=== PATIENT | female | born 1960 | race Caucasian/White ===

== ENCOUNTER 2023-10-24 10:40 | Outpatient (CLI) | payer MEDICARE, SELFPAY | END 2023-10-24 10:41 | disposition home or self-care (01) | LOC: ANHAUDIO 10:40 | PROVIDERS: PCP Internal Medicine; Visit Provider Internal Medicine | DX: H90.3 Sensorineural hearing loss, bilateral (principal) | CPT/HCPCS: 92557; 92567 ==

== ENCOUNTER 2023-11-04 09:14 | Outpatient (RCR) | payer MEDICARE, SELFPAY | END 2023-11-04 23:59 | disposition home or self-care (01) | LOC: ANHAUDIO 09:14 | PROVIDERS: PCP Internal Medicine | DX: Z46.1 Encounter for fitting and adjustment of hearing aid (principal) | CPT/HCPCS: V5261 ==

== ENCOUNTER 2024-06-06 16:51 | Emergency (ER) | payer MEDICARE, SELFPAY ==
[2024-06-06] VITALS (7 sets, daily range): BP systolic 87–131; BP diastolic 54–84; PULSE 70–83; RESP 13–20; TEMP 36.3; O2SAT 100
[2024-06-06] MEDS: SODIUM CHLORIDE 0.9% IV 1,000 ML 999 ML IV CONT ×2 (17:14→17:44)
--- NOTE | 2024-06-06 17:17 | ED.GENADULT ---
HPI - General Adult General Chief complaint: Nausea/Vomiting/Diarrhea Stated complaint: N/V/D Time Seen by Provider: 06/06/24 16:56 History of Present Illness HPI narrative: 64-year-old female present to the emergency department for evaluation for acute onset of nausea vomiting and diarrhea. Patient states symptoms started after lunch. Patient states that she suspect she did have a syncopal episode. Patient reports she was sitting on the toilet and reach for it for a bucket secondary to emesis and patient fell to the floor and had a large bowel movement. Patient denies any pain or complaint. Related Data Allergies Allergy/AdvReac Type Severity Reaction Status Date / Time hydrocodone AdvReac Mild Nausea Verified 06/06/24 17:07 Review of Systems Review of Systems: All systems reviewed & are unremarkable except as noted in HPI and below Exam Narrative: APPEARANCE: Well appearing, no pain, no distress, well-nourished. HEAD: normocephalic, atraumatic. EYES: PERRLA/EOMI, conjunctivae clear. NOSE: Normal no drainage EARS:TMS clear with good light reflex. THROAT: Pharynx clear, no exudate. NECK: Supple. No adenopathy, no masses. RESPIRATORY: Airway patent, respirations nonlabored. Clear to auscultation bilaterally, no rales, rhonchi, wheezing. CARDIOVASCULAR: Regular rate and rhythm without murmurs rubs or gallops. ABDOMINAL: Soft, nontender, nondistended, normal bowel sounds MUSCULOSKELETAL: Moves all extremities. Strength/ROM intact, No edema, No calf tenderness. NEURO: Alert. Cranial nerves II through XII intact. Good gait. Good coordination SKIN: Warm, dry. Normal Color PSYCHIATRIC: Normal affect/mood. Course Vital Signs Vital signs: Vital Signs Temperature 97.4 F L 06/06/24 16:51 Pulse Rate 74 06/06/24 16:51 Respiratory Rate 20 06/06/24 16:51 Blood Pressure 121/76 06/06/24 16:51 Pulse Oximetry 100 06/06/24 16:51 Oxygen Delivery Room Air 06/06/24 16:51 Temperature 97.4 F L 06/06/24 16:51 Pulse Rate 83 06/06/24 19:53 Respiratory Rate 15 06/06/24 19:53 Blood Pressure 131/69 06/06/24 19:53 Pulse Oximetry 100 06/06/24 19:53 Oxygen Delivery Room Air 06/06/24 16:51 Medical Decision Making [facility] Narrative Medical decision making narrative: 64-year-old female presents emergency department for evaluation episode of nausea vomiting and diarrhea. Patient is currently afebrile with no leukocytosis and hemoglobin of 13.3. Patient has elevated creatinine has no previous values on file. Lactic acid is elevated 2.1, patient was treated with a L of IV fluids. Patient was negative for influenza RSV and for COVID. Patient denies striking head. Patient is unsure if she had any loss of consciousness. After rehydration patient states she feels improved. Patient was tolerating p.o. challenge. Patient was advised to follow a clear liquid diet for the next 1-3 days. Patient was provided Zofran for nausea control. Differential Diagnosis Differential Diagnosis: Colitis, diverticulitis, dehydration, influenza Vital Signs Vital Signs: Vital Signs Temperature 97.4 F L 06/06/24 16:51 Pulse Rate 74 06/06/24 16:51 Respiratory Rate 20 06/06/24 16:51 Blood Pressure 121/76 06/06/24 16:51 Pulse Oximetry 100 06/06/24 16:51 Oxygen Delivery Room Air 06/06/24 16:51 Temperature 97.4 F L 06/06/24 16:51 Pulse Rate 83 06/06/24 19:53 Respiratory Rate 15 06/06/24 19:53 Blood Pressure 131/69 06/06/24 19:53 Pulse Oximetry 100 06/06/24 19:53 Oxygen Delivery Room Air 06/06/24 16:51 Lab Data 06/06/24 17:12 06/06/24 17:12 Labs: Lab Results 06/06/24 06/06/24 06/06/24 Range/Units 17:12 17:13 18:50 WBC 8.1 (4.5-10.0) K/mm3 RBC 4.10 L (4.2-5.4) M/mm3 Hgb 13.3 (12.0-15.0) g/dL Hct 40.9 (37.0-47.0) % MCV 99.8 (80-100) fl MCH 32.4 (26-34) pg MCHC 32.5 (32-36) g/dl RDW 14.0 (11.5-14.5) % Plt Count 145 L (150-375) k/mm3 MPV 11.1 H (7.4-10.4) fl Immature Gran % (Auto) 0.5 (0-0.5) % Neut % (Auto) 52.5 (45.5-73.1) % Lymph % (Auto) 32.8 (18.3-44.2) % [place] % (Auto) 13.1 H (2.6-8.5) % Eos % (Auto) 0.5 (0-4.4) % Baso % (Auto) 0.6 (0.2-1.2) % Lymph # (Auto) 2.65 (0.9-3.2) K/mm3 [place] # (Auto) 1.1 H (0.1-0.6) K/mm3 Eos # (Auto) 0.0 (0-0.3) K/mm3 Baso # (Auto) 0.1 (0.0-0.1) K/mm3 Abs Immat Gran (auto) 0.04 H (0.00-0.031) K/mm3 Absolute Neuts (auto) 4.3 (1.3-6.7) K/mm3 Absolute Nucleated RBC 0.000 (0.0-0.012) K/mm3 Nucleated RBC % 0.0 (0.0-0.2) % Sodium 140 (137-145) mmol/L Potassium 5.0 (3.4-5.0) mmol/L Chloride 103 (98-107) mmol/L Carbon Dioxide 28 (22-30) mmol/L Anion Gap 9 (4-12) mmol/L BUN 33 H (7-17) mg/dL Creatinine 1.92 H (0.7-1.0) mg/dL Estim Creat Clear Calc 22 ml/min Estimated GFR 26 L (59 - ) Glucose 139 H (65-110) mg/dL Lactic Acid 2.1 H (0.7-2.0) mmol/L Calcium 9.4 (8.4-10.2) mg/dL Total Bilirubin 0.9 (0.2-1.3) mg/dL AST 22 (14-36) U/L ALT 11 (6-35) U/L Alkaline Phosphatase 103 (38-126) U/L Total Protein 7.0 (6.3-8.2) g/dL Albumin 3.6 (3.5-5.1) g/dL Urine Color Yellow (Yellow) Urine Appearance Clear (Clear) Urine pH 6.5 (5.0-9.0) Ur Specific [place] 1.009 (1.001-1.035) Urine Protein Negative (Negative) mg/dL Urine Glucose (UA) 2+ H (Negative) mg/dL Urine Ketones Negative (Negative) mg/dL Ur Blood (Man) Negative (Negative) Urine Nitrate Negative (Negative) Urine Bilirubin Negative (Negative) Urine Urobilinogen 1.0 (<2.0) mg/dL Leukocyte Esterase Rfl Negative (Negative) SENAIT/UL Influenza A (RT-PCR) Negative (Negative) Influenza B (RT-PCR) Negative (Negative) RSV (RT-PCR) Negative (Negative) SARS-CoV-2 RNA (RT-PCR) Negative (Negative) Discharge Plan Discharge Clinical Impression: Nausea vomiting and diarrhea Patient Disposition: Home, Self-Care Condition: Stable Instructions: Antibiotic Form, Clear Liquid Diet (ED), Acute Nausea and Vomiting (ED) Additional Instructions: Clear liquid diet for the next 1-3 days. Zofran as needed for nausea control. Have close follow-up with your primary care physician. If you have any worsening symptoms then please call or return to the emergency department. Patient Language: Panamanian Prescriptions: New ondansetron 4 mg tablet,disintegrating 4 mg PO Q8H PRN (Reason: nausea and vomiting) Qty: 14 0RF Follow-up/Referrals: Sergei,Justice Busby MD [Primary Care Provider] -
[2024-06-06 17:19] LABS: Basophils Absolute Auto 0.1 K/mm3 (0.0-0.1); Basophils Percent Auto 0.6 % (0.2-1.2); Eosinophils Percent Auto 0.5 % (0-4.4); Hematocrit 40.9 % (37.0-47.0); Hemoglobin 13.3 g/dL (12.0-15.0); Immature Granulocyte Absolute 0.04 K/mm3 (0.00-0.031); Immature Granulocyte Percent A 0.5 % (0-0.5); Lymphocytes Absolute Auto 2.65 K/mm3 (0.9-3.2); Lymphocytes Percent Auto 32.8 % (18.3-44.2); Mean Corpuscular HGB Conc 32.5 g/dl (32-36); Mean Corpuscular Hemoglobin 32.4 pg (26-34); Mean Corpuscular Volume 99.8 fl (80-100); Mean Platelet Volume 11.1 fl (7.4-10.4); Monocytes Absolute Auto 1.1 K/mm3 (0.1-0.6); Monocytes Percent Auto 13.1 % (2.6-8.5); Neutrophils Absolute Auto 4.3 K/mm3 (1.3-6.7); Neutrophils Percent Auto 52.5 % (45.5-73.1); Platelet Count Result 145 k/mm3 (150-375); White Blood Count 8.1 K/mm3 (4.5-10.0)
[2024-06-06 17:32] LABS: Lactic Acid Reflex 2.1 mmol/L (0.7-2.0)
[2024-06-06 17:33] LABS: Alanine Aminotransferase 11 U/L (6-35); Albumin Level 3.6 g/dL (3.5-5.1); Alkaline Phosphatase 103 U/L (38-126); Anion Gap 9 mmol/L (4-12); Aspartate Amino Transferase 22 U/L (14-36); Bilirubin,Total 0.9 mg/dL (0.2-1.3); Blood Urea Nitrogen 33 mg/dL (7-17); Calcium 9.4 mg/dL (8.4-10.2); Carbon Dioxide 28 mmol/L (22-30); Chloride 103 mmol/L (98-107); Estimated CRCL calculation 22 ml/min; Estimated Glomerular Filt Rate 26; Glucose 139 mg/dL (65-110); Sodium 140 mmol/L (137-145)
--- OUTSIDE RECORDS SUMMARY | 2024-06-06 17:33 | XMS_ITS | Clinical Summary ---
Author Organization [facility] Address [address], [facility] [address] [place] [address] Phone Care Team Providers Care Retail Seasonal Specialist Name Role Phone Amanuel Montelongo MD Primary Care Provider [phone] Medications polyethylene glycol (MIRALAX) Powder Mix the entire bottle with 64 oz of a clear liquid. Use as directed by the office for colonoscopy prep. 255 g 7 Active Social History Tobacco Use Types Packs/Day Years Used Date Smoking Tobacco: Never Assessed Comments Unknown Sex and Gender Information Value Date Recorded Sex Assigned at Not on file Legal Sex Female 10:50 PM CDT Gender Identity Not on file Sexual Orientation Not on file Plan of Treatment Health Maintenance Due Date Last Done Comments Hepatitis C Virus (HCV) Screening 1960 TdaP Immunization 1960 Pap Smear 1983 Cervical Cancer Screening (CCS) 01/03/1992 HPV/Cotest 01/03/1992 Cologuard 01/03/2012 Immunochemical Fecal Occult Blood 01/03/2012 Mammogram 01/03/2012 Pneumococcal Immunization (5 0+ years) (1 of 1 - PCV) 01/03/2012 Zoster Immunization (1 of 2) 01/03/2012 Influenza Immunization (#1) 2023 SARS-COV-2 Immunization (1 - 2023- season) 2023 Colonoscopy 12/06/2024 12/07/2019, 08/13/2016 Colorectal Cancer Screening 12/06/2024 Respiratory Syncytial Virus (RSV) Immunization (Adult) (1 - 1-dose 75+ series) 2037 12/07/2019, 08/13/2016 Hepatitis B Immunization Aged Out No longer eligible based on patient's age to complete this topic Meningococcal Immunization (ACWY) Aged Out No longer eligible b ased on patient's age to complete this topic Pneumococcal Immunization Combined Aged Out No longer eligible b ased on patient's age to complete this topic Rotavirus Immunization Aged Out No lo nger eligible based on patient's age to complete this topic Procedures Procedure Name Priority Date/Time Associated Diagnosis Comments COLONOSCOPY Routine 12/07/2019 from Last 3 Months or Most Recently Relevant to Health Maintenance Results * COLONOSCOPY (12/07/2019) Abel Barajas DO PROCEDURE/MINOR SURGICAL ORDERA BLES Final Result from Last 3 Months or Most Recently Relevant to Health Maintenance [place] [address] [place] [address] MEDICARE Care Teams Retail Seasonal Specialist Relationship Specialty Start Date End Date Amanuel Montelongo MD [id number] [place] [address] PCP - General Internal Medicine 08/17/16
--- OUTSIDE RECORDS SUMMARY | 2024-06-06 17:33 | XMS_ITS | CONTINUITY OF CARE DOCUMENT ---
Author Name uma hiramjenn Address Unknown Organization [facility] Address [address] [place] [address] [address] [place] [address] Phone [phone] Care Team Providers Care Firearms Model Maker Name Role Phone Tom Moya MD Unavailable [phone] [place] Unavailable [place] Unavailable [phone] PROBLEMS Condition Status Date Provider Notes HTN essential active Whitney Gunn MD Shortness of breath active Whitney Gunn MD Gastritis active Whitney Gunn MD Colitis active Whitney Gunn MD Tobacco abuse active Whitney Gunn MD FAMILY HISTORY OF HEART DISEASE active Erasmo Gunn MD Diastolic dysfunction active Whitney Mckeon Swelling of bilateral legs active Franco saravia CKD stage III active Franco Leiva Carotid artery stenosis active Franco peng Hyperlipidemia active Franco Leiva Venous insufficiency active Franco Leiva ENCOUNTERS Date Type Provider Location Encounter Diag nosis - In-person encounter Office Visit Tom Moya MD [facility] - In-person encounter Office Visit Tom Moya MD [facility] HyperlipidemiaVenous insufficiency - In-person encounter Office Visit Tom Moya MD [facility] Swelling of bilateral legsCKD stage IIICarotid artery stenosis - In-person encounter Office Visit Whitney Gunn MD [facility] - In-person encounter Office Visit Whitney Gunn MD [facility] HTN essentialShortness of breathGastritisColitisTobacco abuseFAMILY HISTORY OF HEART DISEASEDiastolic dysfunction VITAL SIGNS Date Observation Value Provider Body Mass Index (Ratio) 23.77 kg/m2 Marta trinidad Abbie blood pressure, diastolic 82 mm[Hg] Libby alvin Chau blood pressure, systolic 128 mm[Hg] Madina jackson Isac pulse rate 65 /min Marii Isac oxygen saturation, oximetry 99 % Marii Isac weight E&M 130 [lb_av] Mariirenetta Chau blood pressure, cuff size large An alvin Chau height E&M 62 [in_i] Mariirenetta Chau Body Mass Index (Ratio) 24.87 kg/m2 [facility] size regular Simba rret blood pressure, diastolic 86 mm[Hg] Ja rret blood pressure, systolic 132 mm[Hg] Shay ret pulse rate 81 /min Kashif y oxygen saturation, oximetry 94 % Kashif respiratory rate E&M 16 /min Kashif weight E&M 136 [lb_av] Kashif y height E&M 62 [in_i] Kashif y Body Mass Index (Ratio) 24.51 kg/m2 [facility] vivi Abbie blood pressure, diastolic 80 mm[Hg] Li nkLogic blood pressure, systolic 140 mm[Hg] Mone kLogic blood pressure, cuff size regular Ja rret blood pressure, diastolic 80 mm[Hg] Ja rret blood pressure, systolic 140 mm[Hg] Shay ret pulse rate 75 /min Kashif y respiratory rate E&M 12 /min Kashif oxygen saturation, oximetry 94 % Kashif weight E&M 134 [lb_av] Kashif y height E&M 62 [in_i] Kashif y Body Mass Index (Ratio) 33.83 kg/m2 Erasmo Gunn MD blood pressure, cuff size large Ke rri [facility] blood pressure, diastolic 94 mm[Hg] Ke rri [facility] blood pressure, systolic 132 mm[Hg] Rocky celeste Medinala [facility] oxygen saturation, oximetry 97 % Myrtle [facility] respiratory rate E&M 16 /min Myrtle G yessicaenela [facility] pulse rate 84 /min Myrtle Rachellnetonie [facility] weight E&M 185 [lb_av] Myrtle Rachellnenfe [facility] height E&M 62 [in_i] Myrtle Rachellnenfe [facility] Body Mass Index (Ratio) 34.02 kg/m2 Erasmo Gunn MD blood pressure, resting Yes Chasefer andrade [place] blood pressure, cuff size regular Kr isty [place] blood pressure, diastolic 80 mm[Hg] Kr isty Edgar blood pressure, systolic 138 mm[Hg] Kri julito [place] oxygen saturation, oximetry 98 % Latonia Edgar pulse rate 83 /min Latonia [place] respiratory rate E&M 19 /min Latonia Edgar height E&M 62 [in_i] Latonia [place] weight E&M 186 [lb_av] Latonia [place] ALLERGIES Allergy Name Onset Date Reaction Criticality Status NSAIDS Low Criticality active CODEINE Low Criticality active HISTORY OF MEDICATION USE Medication Status Instructions Dates Provider Indications Com ments furosemide 20 mg tablet active TAKE 1 TABLET BY MOUTH EVERY DAY 06/18 Tom Moya MD Jardiance 10 mg tablet active Take 1 tablet by mouth once a day 06/18 Tom Moya MD Zithromax Z-Ritchie 250 mg tablet completed Take 1 tablet by mouth as directed Take 2 tablets on day one and then take one tablet daily x 4 days 05/22 - 07/30 Gayeserena Cisnerosmiglia [employer] atorvastatin 40 mg tablet active 1 tablet by mouth once a day 04/24 Gaye Ventimiglia [employer] Plavix 75 mg tablet active 1 tablet by mouth once a day 04/24 Gaye Ventimiglia [employer] Wellbutrin SR 100 mg tablet sustained-release 12 hr completed one tab by mouth daily, if not effective after 1 week may increase to twice daily 04/24 - 07/30 Gaye Ventimiglia [employer] nicotine 21 mg/24 hr patch 24 hour active as directed 04/24 Gayeserena Cisnerosmiglia [employer] Unisom (doxylamine) 25 mg tablet completed tablet by mouth as needed - 07/30 Gayeserena Cisnerosmiglia [employer] melatonin 5 mg capsule completed Take 1 tablet by mouth once a day - 07/30 Gaye Ventimiglia [employer] nabumetone 500 mg tablet completed Take 1 tablet by mouth twice a day 12/09 - 07/30 Gaye Ventimiglia [employer] #60, 30 days supply, Prescribed by VON IBRAHIM, Filled 12/10/2019 lisinopril 20 mg tablet active Take 1 tablet by mouth once a day 12/14 Gayeserena Cisnerosmiglia [employer] #60, 30 days supply, Prescribed by MAGGIE GRANT, Filled 12/15/2019 hydrochlorothiazide 12.5 mg capsule completed Take 1 tablet by mouth twice a day 12/14 - 07/30 Gaye Ventimiglia [employer] #60, 30 days supply, Prescribed by MAGGIE GRANT, Filled 12/15/2019 divalproex 250 mg tablet extended release 24 hr active Take 5 tablet by mouth every night 06/18 Gaye Cisnerosmiglia [employer] #150, 30 days supply, Prescribed by VON IBRAHIM, Filled 12/31/2019 nystatin 100,000 unit/gram cream completed Apply to skin twice a day - 07/30 Gaye Guilloryglia [employer] #30, 15 days supply, Prescribed by MAGGIE GRANT, Filled 01/14/2020 amlodipine 5 mg tablet active Take 1 tablet by mouth once a day Gaye Guilloryglia [employer] #30, 30 days supply, Prescribed by MAGGIE GRANT, Filled 01/14/2020 SOCIAL HISTORY Date Observation Value Provider personal history of marijuana use no Gayeserena Cisnerosmiglia [facility] drug use no Gayeserena Cisnerosmig marisela [facility] alcohol use no Gayeserena Cisnerosmig marisela [facility] smoking/tobacco cess ation, patient education and counseling yes Marii Isac number of years as a smoker 35 a Marii Isac smoking history, tot al pack/day 1 pks qd Marii Isac cigarette use yes Marii Isac smoking status Current every day smoker A artem Isac smoking/tobacco cess ation, patient education and counseling yes Franco Abbie number of years as a smoker 35 a Franco Abbie smoking history, tot al pack/day 1 pks qd Franco Abbie cigarette use yes Franco Gopi i smoking status Current every day smoker G raham Abbie smoking/tobacco cess ation, patient education and counseling yes Myrtle Gautam number of years as a smoker 35 a Myrtle Dianeer smoking history, tot al pack/day 1 pks qd Myrtle Dianeer cigarette use yes Myrtle Ramirez [facility] smoking status Current every day smoker K ashok Dianekade smoking/tobacco cess ation, patient education and counseling yes Whitney Gunn MD social history E&M S moking History: P cecelia currently smokes every day. Whitney Gunn MD social history reviewed E&M revi ewed - no changes required Whitney Gunn MD number of years as a smoker 35 a Latonia Hernández smoking history, tot al pack/day 1 pks qd Latonia Hernández cigarette use yes Latonia Hernández smoking status Current every day smoker K jose [place] INSURANCE PROVIDERS Payer name Policy type / Coverage type [place] [employer] [place] Medicare [id number] ADVANCE DIRECTIVES Name Date DISCUSSED - NO DECISION MADE TREATMENT PLAN Date Name Performer Cardiology Gayeserena hampton [facility] Cardiology:cessation encouraged Gayeserena Moss [facility] Cardiology:Blood pre ssure well controlled C ontinue pressent medication regimen T he following medications were removed from the medication list: Hydrochlorothiazide 12.5 Mg Capsule (Hydrochlorothiazide) ..... Take 1 tablet by mouth twice a day Her updated medication list for this problem includes: Amlodipine 5 Mg Tablet (Amlodipine) ..... Take 1 tablet by mouth once a day Lisinopril 20 Mg Tablet (Lisinopril) ..... Take 1 tablet by mouth once a day Furosemide 20 Mg Tablet (Furosemide) ..... Take 1 tablet by mouth every day Gayeserena Moss [facility] Cardiology:edema imp roved with lasix and Jardiance s he has been unable to tolerate compression stockings. Gayeserena Moss [facility] Cardiology:started o n Jardiance at last visit and feeling well with medication. She has also noted decreased swelling in the bilateral LE W e will continue present medication regimen Gayeserena Moss [facility] Cardiology: ntProBNP 2010, LDL 104. We will start Jardiance 10mg daily and Lasix 20mg daily. Franco Leiva Cardiology: chronic CKD followed by Dr. Gupta. Franco Leiva Cardiology:enous dup austyn showed insufficiency of right superficial femoral vein. If no improvement, will consider venography/IVUS. Franco Leiva Cardiology:Carotid duplex showed 50-69% of MARYAN. Franco Leiva Cardiology:Increase lipitor to 80mg daily. H er updated medication list for this problem includes: Atorvastatin Calcium 40 Mg Oral Tablet (Atorvastatin calcium) ..... One tab daily Franco Leiva Cardiology:Echo show ed normal EF.Renal artery duplex normal. Carotid duplex showed 50-69% of MARYAN. Stress test is being rescheduled. ntProBNP 2009, LDL 104. We will start Jardiance 10mg daily and Lasix 20mg daily. Increase lipitor to 80mg daily. 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 If no improvement, will consider venography/IVUS. Pending stress test result will obtain cardiac cath Franco Leiva Cardiology:The Patie nt was reencouraged to stop smoking. Franco Leiva Cardiology: B P today: 140/80 P rior BP: 132/94 (02/23/2020) Her updated medication list for this problem includes: Lisinopril 20 Mg Oral Tablet (Lisinopril) ..... Take one tablet by mouth twice daily Hydrochlorothiazide 12.5 Mg Oral Capsule (Hydrochlorothiazide) ..... Take one tablet by mouth twice daily Amlodipine Besylate 5 Mg Oral Tablet (Amlodipine besylate) ..... Take one tablet by mouth once daily Franco Leiva Cardiology Franco Leiva Cardiology: chronic CKD followed by Dr. Gupta. Franco Leiva Cardiology: In addit ion she has hx of moderate right carotid stenosis w ill check carotid doppler Franco Leiva Cardiology:Pt compla ins of leg edema, discomfort and an inability to wear shoes. She was not able to tolerate support stockings. Tom Moya MD Cardiology Whitney Gunn MD Cardiology Whitney Gunn MD Cardiology Whitney Gunn MD Cardiology Whitney Gunn MD Cardiology Whitney Gunn MD Date Name RPM (remote patient monitoring) Microalb/Creatinine Urine, Random Stress Regadenoson CRP, high sensitivit y LIPID PANEL Lipoprotein (a) PROBNP, N TERMINAL Microalb/Creatinine Urine, Random HEMOGLOBIN A1c BASIC METABOLIC PANE L W/EGFR Renal Artery Duplex Carotid Duplex Bilat eral Venous Doppler Bilat eral LE - Reflux Complete Echo Stress Exercise Card iolite LIPID PANEL CBC (H/H, RBC, INDIC ES, WBC, PLT) BASIC METABOLIC PANE L W/EGFR IRON AND TOTAL IRON BINDING CAPACITY FERRITIN CBC (INCLUDES DIFF/P LT) TSH, free T4, total T3 LIPID PANEL COMPREHENSIVE METABO LIC PANEL, W/EGFR DLCO - 92643 FRC - 09449 FVC - 33622 Stress Regadenoson HISTORY OF PROCEDURES Procedure Date Procedure Name Provider Procedure Notes S tatus EKG Tom Moya MD completed FVC / MVV with bronchodilator - 56746 Whitney Gunn MD completed BLOOD COUNT HEMOGLOBIN Whitney Gunn MD completed FRC - 14794 Whitney Gunn MD complete d SpO2 w/o 6min walk/titration Whitney Gunn MD completed DLCO - 85360 Whitney Gunn MD complet ed EKG Whitney Gunn MD completed
--- OUTSIDE RECORDS SUMMARY | 2024-06-06 17:33 | XMS_ITS | Data Portability ---
Author Organization [facility] [employer] Main Office Address [address] [place] [address] Care Team Providers Care Tire Worker Name Role Phone DARNELL HUMPHREY Primary Care Provider [phone] LEXUS DONOVAN Vascular Surgeon [phone] Assessment No assessment recorded. Plan of Treatment Reminders Order Date Submit Date Provider Last Modified By Organization Details Last Modified Time Details Appointments Medicare Wellness 15 2024 11:30A M Darnell Humphrey MD Not available Not available Not available Lab TSH, serum or plasma 2024 025 [facility] (Lab), [address] [place], [address], 04/22/2024 20:40:41 iron + total iron-bind ing capacity (TIBC), serum 2023 [facility] [address] (Lab), [address] [place], [address], 10/30/2023 16:11:13 vitamin B12, serum 2023 [facility] [facility] [address] [place] [address] (Lab), [address] [place], [address], 10/30/2023 16:10:45 ferritin, serum or plasma [address] ([facility]), [address] [place], [address], 10/30/2023 16:10:08 folate, serum [address] ([facility]), [address] [place], [address], 10/30/2023 16:10:58 CBC [address] (Lab), [address] [place], [address], 10/30/2023 16:10:20 lipid panel, serum [address] (Lab), [address] [place], [address], 10/30/2023 16:09:32 urinalysi s, complete [address] (Lab), [address] [place], [address], 10/30/2023 16:09:19 CMP, serum or plasma [address] (Lab), [address] [place], [address], 10/30/2023 16:09:52 Referral gynecolog ist referral - Please call patient to schedule. 2024 025 ADRIANE Ellison MD, [address] [facility] [address], [facility] [address], [place], [address], 04/22/2024 18:30:[address] referral [address] (Audiology), [address] [facility] [address], [place], [address], 10/23/2023 07:56:15 dermatolo gist referral 2023 024 [place] [address] [facility], [facility] [place], [address], 10/23/2023 07:56:16 Procedures colonosco py screening (PROC) 2024 025 [facility] Maurice Mckay MD, [address] [address], [facility] [address], [place], [address], 04/29/2024 08:32:13 Surgeries None recorded. Imaging MAMMO, screening , digital, bilateral [address], [facility] [address], [address], 04/22/2024 17:55:07 LDCT, chest, for lung cancer screening - Please call patient to schedule. 2024 025 [facility], [address], [address], 04/22/2024 18:05:28 MAMMO, screening , digital, bilateral [address], [facility] [address], [address], 01/07/2024 17:32:38 LDCT, chest, for lung cancer screening [address], [facility] [address], [address], 10/02/2023 08:37:55 bone density [address], [facility] [address], [address], 10/09/2023 08:16:01 Medication Orders None recorded. Patient TargetsNo targets recorded. Patient Instructions Encounter Date Encounter Id Patient Instructions Last Modified By Organization Details Last Modified Time 10/23/2023 [id number] [facility] health assessment questionnaire* Not available 10/23/2023 16:39:13 advance directiv es: care instructions Not available 10/23/2023 16:39:13 [place] Advance Directives Not available 10/23/2023 16:39:13 advance care planning: care instructions seth Not available 10/23/2023 16:39:13 Personalized Hea lth Plan and Screening Recommendations Advance Directives - Do you have one? No You have indicated that you are capable of preparing your advance care directive Advance Directives - Do we have your advance directive on file in your health record? No, please bring in a copy at your earliest convenience Primary Prevention/Interven tion (prevents or decreases the chance of common diseases from occurring) Smoking Risk: Smoker Refer to attached smoking cessation handouts Refer to attached handouts and prescription will be sent to pharmacy Continue to consider stopping smoking and call if we can assist you Alcohol Misuse Screening: Negative Weight: Appropriate Physical activity: Need more exercise/physical activity minimum of 10-20 minutes of activity that causes mild breathlessness/day Nutrition: Good Average Refer to attached handout Heart-Healthy Diet: After Your Visit Fall Risk (screened today): Low Intermediate Refer to attached handout Preventing Falls: After your Visit Vaccines Pneumococcal: Ordered Recommended today Influenza: Your next one in the fall of this year Chronic Disease Risks Stroke: Low Risk Intermediate Risk I have no recommendations Act gina diagnosis, Continue current treatment plan Heart Attack: Low risk Intermediate Risk I have no recommendations Act gina diagnosis, Continue current treatment plan Clogging of the Arteries: Low risk Intermediate Risk I have no recommendations Act gina diagnosis, Continue current treatment plan Diabetes: Low Risk I have no recommendations Secondary Prevention/Interven tion (detects treatable diseases before they may cause symptoms, disability, or ) Breast Cancer Screening with mammogram: Your next mammogram: Ordered Recommended today Recommended today, but you have declined Cervical/Uterine/Ov dagoberto Cancer Screening: Your next PAP/pelvic in: Referral to concrete laborer Recomm ended today Recommended today, but you have declined Osteoporosis Screening: No screening necessary Date Screening Last Performed:states done 2022_ Colon Cancer Screening: No screening necessary Date Screening Last Performed: 2020 Eye Disease Screening: Ordered Recommended today Dementia Risk: Low Intermediate Depression Screening: Negative [email or web address] Not available 10/23/2023 16:45:58 Reason for Referral Gypsum Roofer Referral for Hea ring loss Referring Physician: Darnell Humphrey, Internal Medicine, Encounter Date: 09/25/2023 Driver Courier Referral for S kin lesion Referring Physician: Darnell Humphrey, Internal Medicine, Encounter Date: 09/25/2023 Information Security Associate Referral for Gy necologic examination Please call patient to schedule. Referring Physician: Darnell Humphrey, Internal Medicine, Encounter Date: 04/22/2024 Results Created Date Observation Date Name Description Value Unit Range Abnormal Flag Note LastModifiedBy Organization Detail LastModifiedTime 11/05/19 24 11/05/2023 CBC W/O DIFFE RENTI AL white blood cells 5.5 x10'3 /uL 4.2-10 .8 Not Available [facility] (Lab) [address] [place], [address], 11/05/2023 20:33:01 11/05/19 24 11/05/2023 CBC W/O DIFFE RENTI AL red blood cells 4.08 x10'6 /uL 3.80-5 .20 Not Available [facility] (Lab) [address] [place], [address], 11/05/2023 20:33:01 11/05/19 24 11/05/2023 CBC W/O DIFFE RENTI AL hemoglobin 13.4 g/dL 12.0-1 5.6 Not Available [facility] (Lab) [address] [place], [address], 11/05/2023 20:33:01 11/05/19 24 11/05/2023 CBC W/O DIFFE RENTI AL hematocrit 42.9 % 35.7-4 5.7 Not Available [facility] (Lab) [address] [place], [address], 11/05/2023 20:33:01 11/05/19 24 11/05/2023 CBC W/O DIFFE RENTI AL mean red cell volume 105.1 fL 82.0-9 9.0 high Not Available [facility] (Lab) [address] [place], [address], 11/05/2023 20:33:01 11/05/19 24 11/05/2023 CBC W/O DIFFE RENTI AL mean red cell hemoglobin 32.8 pg 27.0-3 3.0 Not Available [facility] (Lab) [address] [place], [address], 11/05/2023 20:33:01 11/05/19 24 11/05/2023 CBC W/O DIFFE RENTI AL mean RBC HGB concentratio n 31.2 g/dL 31.0-3 6.0 Not Available [facility] (Lab) [address] [place], [address], 11/05/2023 20:33:01 11/05/19 24 11/05/2023 CBC W/O DIFFE RENTI AL red cell distribution width 14.0 % 11.8-1 5.5 Not Available [facility] (Lab) [address] [place], [address], 11/05/2023 20:33:01 11/05/19 24 11/05/2023 CBC W/O DIFFE RENTI AL platelets 98 x10'3 /uL 150-40 0 low Not Available [facility] (Lab) [address] [place], [address], 11/05/2023 20:33:01 11/05/19 24 11/05/2023 CBC W/O DIFFE RENTI AL mean platelet volume 11.8 fL 9.0-12 .4 Not Available [facility] (Lab) [address] [place], [address], 11/05/2023 20:33:01 11/05/19 24 11/05/2023 COMPR EHENS GINA METAB OLIC PANEL sodium 139 mmol/ L 137-14 5 Not Available [facility] (Lab) [address] [place], [address], 11/05/2023 20:49:41 11/05/19 24 11/05/2023 COMPR EHENS GINA METAB OLIC PANEL potassium 3.7 mmol/ L 3.5-5. 1 Not Available [facility] (Lab) [address] [place], [address], 11/05/2023 20:49:41 11/05/19 24 11/05/2023 COMPR EHENS GINA METAB OLIC PANEL chloride 109 mmol/ L 98-107 high Not Available [facility] (Lab) [address] [place], [address], 11/05/2023 20:49:41 11/05/19 24 11/05/2023 COMPR EHENS GINA METAB OLIC PANEL carbon dioxide 23 mmol/ L 22-30 Not Available [facility] (Lab) [address] [place], [address], 11/05/2023 20:49:41 11/05/19 24 11/05/2023 COMPR EHENS GINA METAB OLIC PANEL anion gap 10.7 mmol/ L 14-22 low Not Available [facility] (Lab) [address] [place], [address], 11/05/2023 20:49:41 11/05/19 24 11/05/2023 COMPR EHENS GINA METAB OLIC PANEL glucose 62 mg/dL 70-99 low Not Available [facility] (Lab) [address] [place], [address], 11/05/2023 20:49:41 11/05/19 24 11/05/2023 COMPR EHENS GINA METAB OLIC PANEL BUN 24 mg/dL 8-19 high Not Available [facility] (Lab) [address] [place], [address], 11/05/2023 20:49:41 11/05/19 24 11/05/2023 COMPR EHENS GINA METAB OLIC PANEL creatinine 1.36 mg/dL 0.66-1 .25 high Not Available [facility] (Lab) [address] [place], [address], 11/05/2023 20:49:41 11/05/19 24 11/05/2023 COMPR EHENS GINA METAB OLIC PANEL GFR 40 Refer ence Range : [place] ge GFR Healt hy Adult : >60 mL/mi n/1.7 3 m2 Chron ic Kidne y Disea se: 15-60 mL/mi n/1.7 3 m2 Kidne y Failu re: <15/m L/min /1.73 m2 www.n iddk. nih.g ov The MDRD study equat ion has not been valid ated in child fabiola <18 years of age; pregn ant women ; the elder ly >85 years of age; or in some racia l or ethni c subgr oups, such as Hispa nics. Outsi de the valid ated carmine eters , estim ated GFR is less accur ate, requi ring clini minor judgm ent on a case- by-ca se basis . Clini minor inter preta tion for other races and ages must be made by the clini britta. The MDRD study equat ion has not been valid ated for the evalu ation of serum creat inine relat ed to nutri hilary l statu s or medic ation usage . For perso ns <18 years of age, a pedia tric GFR calcu lator is avail able on the [facility] websi te: https ://sonali vera.o rg/pr ofess ional s/kdo qi/gf r_cal culat or Not Available [facility] (Lab) [address] [place], [address], 11/05/2023 20:49:41 11/05/19 24 11/05/2023 COMPR EHENS GINA METAB OLIC PANEL alkaline phosphatase 87 U/L 38-126 Not Available [facility] (Lab) [address] [place], [address], 11/05/2023 20:49:41 11/05/19 24 11/05/2023 COMPR EHENS GINA METAB OLIC PANEL alanine aminotransfe rase 11 U/L 0-35 Not Available [facility] (Lab) [address] [place], [address], 11/05/2023 20:49:41 11/05/19 24 11/05/2023 COMPR EHENS GINA METAB OLIC PANEL aspartate aminotransfe rase 27 U/L 15-37 Not Available [facility] (Lab) [address] [place], [address], 11/05/2023 20:49:41 11/05/19 24 11/05/2023 COMPR EHENS GINA METAB OLIC PANEL bilirubin, total 0.50 mg/dL 0.20-1 .30 Not Available [facility] (Lab) [address] [place], [address], 11/05/2023 20:49:41 11/05/19 24 11/05/2023 COMPR EHENS GINA METAB OLIC PANEL calcium 9.6 mg/dL 8.4-10 .2 Not Available [facility] (Lab) [address] [place], [address], 11/05/2023 20:49:41 11/05/19 24 11/05/2023 COMPR EHENS GINA METAB OLIC PANEL total protein 6.5 g/dL 6.3-8. 2 Not Available [facility] (Lab) [address] [place], [address], 11/05/2023 20:49:41 11/05/19 24 11/05/2023 COMPR EHENS GINA METAB OLIC PANEL albumin 3.9 g/dL 3.4-5. 0 Not Available [facility] (Lab) [address] [place], [address], 11/05/2023 20:49:41 11/05/19 24 11/05/2023 COMPR EHENS GINA METAB OLIC PANEL globulin 2.6 g/dL 2.6-4. 2 Not Available [facility] (Lab) [address] [place], [address], 11/05/2023 20:49:41 11/05/19 24 11/05/2023 COMPR EHENS GINA METAB OLIC PANEL A/G ratio 1.5 ratio 1.0-2. 0 Not Available [facility] (Lab) [address] [place], [address], 11/05/2023 20:49:41 11/05/19 24 11/05/2023 LIPID PANEL cholesterol 198 mg/dL 140-19 9 [facility] JOSEFA NSUS RECOM MENDA TION FOR JUDSON STERO L: ADULT CHILD LOW RISK: <200 <170 BORDE RLINE : <200- 239 ----- HIGH RISK: >240 >200 Not Available [facility] (Lab) [address] [place], [address], 11/05/2023 20:49:45 11/05/19 24 11/05/2023 LIPID PANEL triglyceride s 243 mg/dL 0-150 high NIH JOSEFA NSUS REPOR T RECOM MENDA TION FOR TRIGL YCERI DAVID: ADULT CHILD LOW RISK: <150 ----- BODER LINE: 150-1 99 ----- HIGH RISK: >200 ----- Not Available [facility] (Lab) [address] [place], [address], 11/05/2023 20:49:45 11/05/19 24 11/05/2023 LIPID PANEL HDL cholesterol 44 mg/dL 40- Not Available [facility] (Lab) [address] [place], [address], 11/05/2023 20:49:45 11/05/19 24 11/05/2023 LIPID PANEL LDL cholesterol, calculated 105 mg/dL 0-130 NIH JOSEFA NSUS REPOR T RECOM MENDA TIONS FOR LDL: ADULT CHILD LOW RISK <130 <110 (OPTI MAL LDL) <100 ----- BORDE RLINE : 130-1 59 ----- HIGH RISK: >160 >130 A TRIGL YCERI DE RESUL T >400 INVAL IDATE S THE CALCU LATIO N FOR LDL FRACT IONAT ION - THE LDL RESUL T WILL NOT BE REPOR BRAIN. Not Available [facility] (Lab) [address] [place], [address], 11/05/2023 20:49:45 11/05/19 24 11/05/2023 IRON/ TIBC PANEL total iron binding capacity 289 mcg/d L 265-47 5 Not Available [facility] (Lab) [address] [place], [address], 11/05/2023 21:02:51 11/05/19 24 11/05/2023 IRON/ TIBC PANEL % transferrin saturation 22 % 20-55 Not Available [facility] (Lab) [address] [place], [address], 11/05/2023 21:02:51 11/05/19 24 11/05/2023 IRON/ TIBC PANEL unsaturated iron bind capacity 224 mcg/d L 126-38 2 Not Available [facility] (Lab) [address] [place], [address], 11/05/2023 21:02:51 11/05/19 24 11/05/2023 IRON/ TIBC PANEL iron 65 mcg/d L 42-175 Not Available [facility] (Lab) [address] [place], [address], 11/05/2023 21:02:51 11/05/19 24 11/05/2023 TEST NOT PERFO RMED test not performed SEE COMMEN T UNABL E TO PERFO RM URINA LYSIS COMPL ETE DUE TO NO URINE REC'D IN LAB FOR TESTI NG Not Available [facility] (Lab) [address] [place], [address], 11/05/2023 21:13:24 11/05/19 24 11/05/2023 LUIS TIN ferritin 76 NG/mL 11.1-2 64 Not Available [facility] (Lab) [address] [place], [address], 11/05/2023 21:30:50 11/05/19 24 11/05/2023 VITAM IN B12 (MARGA KRISTA ) vb12 537 pg/mL 239-93 1 Not Available [facility] (Lab) [address] [place], [address], 11/05/2023 21:47:16 11/05/19 24 11/05/2023 FOLAT E, SERUM /PLAS MA folate 7.03 NG/mL 2.76-2 0.0 Not Available [facility] (Lab) [address] [place], [address], 11/05/2023 21:47:22 04/22/19 25 04/22/2024 TSH thyroid-stim ulating hormone 2.900 uIU/m L 0.465- 4.680 Not Available [facility] (Lab) [address] [place], [address], 04/22/2024 20:40:41 08/07/19 23 08/06/2022 US, carot id arter y No observ ation record ed. [email or web address] [facility] [address], [place], [address], 08/08/2022 18:30:16 Result Notes None recorded. Problems Name Problem SNOMED Code Status Onset Date Resolution Date Notes Provider Name and Address Organization Details Recorded Time Edema of lower extremity 472417550 Active 2021 Not Available [employer] 3 09:16:13 Pain in lower limb 58314833 Active 2021 Not Available [employer] 3 09:16:13 Sinus tarsi syndrome of left ankle 0601873507489 9102 Active 2018 Not Available [employer] 3 09:16:13 Pain in left foot 4490208958331 07 Active 2021 Not Available [employer] 3 09:16:13 Chronic peripheral venous hypertensi on 467647057 Active 2021 Not Available [facility] 3 09:16:13 Essential hypertensi on 94840142 Active 2023 Darnell Humphrey MD [address], [place], [address] , [place] [facility] 4 14:38:27 Hyperlipid emia 93468586 Active 2023 Darnell Humphrey MD [address], [address], [place], [address] , [place] [facility] 4 14:38:35 Hypothyroi dism 29419871 Active 2023 Darnell Humphrey MD [address], [address], [place], [address] , [place] [facility] 4 14:38:46 Seizure disorder 276406065 Active 2023 Darnell Humphrey MD [address], [address], [place], [address] , [place] [facility] 4 14:38:59 Osteoarthr itis 587193692 Active 2023 Darnell Humphrey MD [address], [place], [address] , [facility] 4 14:39:08 Overactive urinary bladder 493219292 Active 2023 Darnell Humphrey MD [address], [address], [place], [address] , [facility] 4 14:39:30 Kidney disease 93925304 Active 2023 Darnell Humphrey MD [address], [address], [place], [address] , [facility] 4 14:39:47 Hearing loss 42120467 Active 2023 Darnell Humphrey MD [address], [address], [place], [address] , [place] [facility] 4 14:42:47 Smoker 77481880 Active 2023 Darnell Humphrey MD [address], [facility] [address], [place], [address] , [facility] 4 14:42:53 Impacted cerumen in right ear 2218699162773 103 Active 2023 Darnell Humphrey MD [address] [address], [place], [address] , [facility] 4 14:50:19 Skin lesion 76168148 Active 2023 Darnell Humphrey MD [address] [facility] [address], [place], [address] , [facility] 4 14:52:56 Changing shape of pigmented skin lesion 455686363 Active 2023 Rachel Motta MA null, [facility] 4 14:54:13 Abnormal weight 67105786 Active 2024 Jackelyn Haily null, [facility] 5 16:17:29 Cigarette smoker 22623493 Active 2024 Darnell Humphrey MD [address] [address], [place], [address] , [facility] [employer] [facility] 5 16:32:29 Adult failure to thrive syndrome 979822052 Active 2024 Rachel Motta MA null, [facility] 5 12:01:40 Problem Notes None recorded. Procedures Surgical History Date Name Laterality Status Provider Name and Address Organization Details Recorded Time 10/23/19 Advanced Care Planning completed Renee Turpin RN [facility] 10/23/2023 16:45:04 10/23/19 Medicare Wellness CPT Code, Initial completed Renee Turpin RN [place] [facility] 10/23/2023 16:05:37 Total hysterectomy completed LANI Mg [facility] 09/25/2023 14:10:51 Cholecystectomy completed LANI Mg [place] [facility] 09/25/2023 14:10:59 Imaging Results Imaging Date Name Status LastModified by Organiz ation Details LastModified Time 08/06/2022 US, carotid artery completed [email or web address] [facility] [address], [place], [address], 08/08/2022 18:30:16 Procedure Notes None recorded. Medical Equipment None Reported. Allergies Allergen ID Allergen Name Allergen Category Reaction Reaction Severity Criticality Documentation Date Start Date Code Code System Note Provider Name and Address Organization Details Recorded Time 30141 codeine medicatio n Not available Not available Not available 09/25/2023 2670 RxNorm LANI Mayer [place], [place] [facility] 14:05:57 Medications Name Sig Start Date Stop Date Status Note LastModified by Organization Details LastModified Time multivitami n tablet TAKE 1 TABLET BY MOUTH EVERY DAY. active Not Available Not Available No t Available furosemide 40 mg tablet 09/24 completed Not Available Not Available Not Available atorvastati n 40 mg tablet TAKE 1 TABLET BY MOUTH EVERY DAY AT BEDTIME active Not Available Not Available No t Available atorvastati n 80 mg tablet TAKE 1 TABLET BY MOUTH EVERY DAY AT BEDTIME 09/24 completed Not Available Not Available Not Available atorvastati n 20 mg tablet TK 1 T PO QD 09/24 completed Not Available Not Available Not Available clindamycin HCl 300 mg capsule TAKE 1 CAPSULE BY MOUTH THREE TIMES DAILY 11/02 completed Not Available Not Available Not Available divalproex 250 mg tablet,elly yed release TAKE 5 TABLETS BY MOUTH EVERY NIGHT AT BEDTIME 09/24 completed Not Available Not Available Not Available azithromyci n 250 mg tablet TK 2 TS PO ON DAY 1, THEN TK 1 T PO D FOR 4 DAYS 09/24 completed Not Available Not Available Not Available lisinopril 20 mg tablet TAKE 1 TABLET BY MOUTH EVERY DAY 09/24 completed Not Available Not Available Not Available potassium chloride ER 10 mEq tablet,exte nded release TAKE 1 TABLET BY MOUTH ONCE DAILY X 3 DAYS WTIH FUROSEMID E 09/24 completed Not Available Not Available Not Available clopidogrel 75 mg tablet TAKE 1 TABLET BY MOUTH EVERY DAY DIRECTED active Not Available Not Available No t Available chlorthalid one 25 mg tablet Take 1 tablet every day by oral route for 90 days. active Not Available Not Available No t Available amlodipine 5 mg tablet TAKE 1 TABLET BY MOUTH DAILY active Not Available Not Available No t Available lorazepam 0.5 mg tablet TAKE 1 TABLET PO TID DAILY NEEDED 09/24 completed Not Available Not Available Not Available furosemide 80 mg tablet TAKE 1 TABLET BY MOUTH DAILY 09/24 completed Not Available Not Available Not Available hydrocortis one 1 % topical cream APPLY THIN LAYER TOPICALLY TO THE AFFECTED AREA TWICE DAILY FOR 7 TO 10 DAYS 09/24 completed Not Available Not Available Not Available lisinopril 10 mg tablet TAKE 1 TABLET BY MOUTH 1 TIME EACH DAY active Not Available Not Available No t Available Advair Diskus 250 mcg-50 mcg/dose powder for inhalation INHALE 1 PUFF BY MOUTH TWICE DAILY DIRECTED active Not Available Not Available No t Available hydrochloro thiazide 12.5 mg capsule TAKE 1 CAPSULE BY MOUTH TWICE DAILY DIRECTED 09/24 completed Not Available Not Available Not Available furosemide 20 mg tablet TAKE 1 TABLET BY MOUTH EVERY DAY active Not Available Not Available No t Available nabumetone 500 mg tablet TAKE 1 TABLET BY MOUTH TWICE DAILY 09/24 completed Not Available Not Available Not Available divalproex ER 250 mg tablet,exte nded release 24 hr TAKE 5 TABLETS BY MOUTH EVERY NIGHT AT BEDTIME. active Not Available Not Available No t Available cyclobenzap rine 5 mg tablet TK 1 T PO Q 8 H 09/24 completed Not Available Not Available Not Available Calcium 600 + D(3) 600 mg-10 mcg (400 unit) tablet TK 1 T PO BID 09/24 completed Not Available Not Available Not Available cholecalcif pura (vitamin D3) 1,250 mcg (50,000 unit) capsule TAKE ONE CAPSULE BY MOUTH EVERY WEEK 09/24 completed Not Available Not Available Not Available FeroSul 325 mg (65 mg iron) tablet TAKE 1 TABLET BY MOUTH EVERY DAY FOR 30 DAYS. active Not Available Not Available No t Available cholecalcif pura (vitamin D3) 50 mcg (2,000 unit) capsule TAKE 1 CAPSULE BY MOUTH DAILY. 09/24 completed Not Available Not Available Not Available Myrbetriq 25 mg tablet,exte nded release Take 1 tablet every day by oral route. active Not Available Not Available No t Available Jardiance 10 mg tablet TAKE 1 TABLET BY MOUTH DAILY active Not Available Not Available No t Available Vitals Date Recorded Body mass index (BMI) Body height Body weight Provider Name and Address Organization Details Last Updated DateTime 11/02/2021 27.5 kg/m2 165.1 cm 65293.74 g Not Available [employer] 06/13/2022 09:15:13 Date Recorded Body weight Body mass index (BMI) Body height Body temperature Heart rate Systolic blood pressure Diastolic blood pressure Provider Name and Address Organization Details Last Updated DateTime 4 39141.0 5 g 22.1 kg/m2 160.02 cm 97 [degF] 102 /min 104 mm[Hg] 60 mm[Hg] LANI Mayer [facility] [employer] [facility] 14:05:37 Date Recorded Oxygen saturation Oxygen saturation in Arterial blood by Pulse oximetry Provider Name and Address Organization Details Last Updated DateTime 09/25/2023 98 % 98 % Darnell Humphrey MD [address] [address], [place], [address], [facility] 09/25/2023 14:36:49 Date Recorded Body height Body mass index (BMI) Body weight Body temperature Heart rate Oxygen saturation Oxygen saturation in Arterial blood by Pulse oximetry Systolic blood pressure Diastolic blood pressure Provider Name and Address Organization Details Last Updated DateTime 4 160.02 cm 22 kg/m2 46962.4 5 g 98.2 [degF] 91 /min 97 % 97 % 96 mm[Hg] 60 mm[Hg] LANI Mayer [facility] 15:54:32 Date Recorded Pain severity - 0-10 verbal numeric rating [Score] - Reported Provider Name and Address Organization Details Last Updated DateTime 10/23/2023 0 Renee Turpin RN [facility] I L [facility] 10/23/2023 16:06:02 Date Recorded Body height Body mass index (BMI) Body weight Body temperature Oxygen saturation Oxygen saturation in Arterial blood by Pulse oximetry Heart rate Systolic blood pressure Diastolic blood pressure Provider Name and Address Organization Details Last Updated DateTime 5 160.02 cm 20.7 kg/m2 52870.3 1 g 97.2 [degF] 97 % 97 % 82 /min 132 mm[Hg] 68 mm[Hg] Jackelyn altamirano [place] - [facility] [place] [employer] 16:06:57 Social History Question Answer Notes LastModified by Organization Details LastModified Time Tobacco Smoking Status Current Every Day Smoker Not Available [employer] 06/13/2022 09:14:13 Do You Have An Advance Directive? No Information not available 09/25/2023 What Is Your Level Of Alcohol Consumption? None [id number] Information not available 06/13/2022 Is Blood Transfusion Acceptable In An Emergency? Yes Information not available 09/25/2023 What Is Your Level Of Caffeine Consumption? Moderate Information not available 09/25/2023 What Is Your Code Status? Full Code [email or web address] Information not available 10/23/2023 In The 14 Days Before Symptom Onset, Have You Had Close Contact With A Laboratory-conf irmed COVID-19 While That Case Was Ill? No Not Applicable [email or web address] Information not available 10/23/2023 In The 14 Days Before Symptom Onset, Have You Had Close Contact With A Person Who Is Under Investigation For COVID-19 While That Person Was Ill? No Not Applicable [email or web address] Information not available 10/23/2023 Are You Currently Employed? No SSD [email or web address] Information not available 10/23/2023 What Type Of Diet Are You Following? REGULAR Information not available 09/25/2023 What Is The Highest Grade Or Level Of School You Have Completed Or The Highest Degree You Have Received? [id number] Information not available 09/25/2023 How Many Days Of Moderate To Strenuous Exercise, Like A Brisk Walk, Did You Do In The Last 7 Days? 0 [email or web address] Information not available 10/23/2023 Have There Been Any Changes To Your Family Or Social Situation? No Information not available 09/25/2023 What Is The Fluoride Status Of Your Home? Fluoridated [email or web address] Information not available 10/23/2023 Do You Use Insect Repellent Routinely? No Information not available 09/25/2023 Where Do You Live? SingleLevelHouse Information not available 09/25/2023 Presence Of Domestic Violence No [email or web address] Information not available 10/23/2023 Guns Present In The Home? No [email or web address] Information not available 10/23/2023 Are You Able To Care For Yourself? Yes [email or web address] Information not available 10/23/2023 Are You Blind Or Do Yo Have Difficulty Seeing? No [email or web address] Information not available 10/23/2023 Are You Deaf Or Do You Have Serious Difficulty Hearing? Yes [email or web address] Information not available 10/23/2023 General Stress Level? Low [email or web address] Information not available 10/23/2023 Live Alone Of With Others? With Others [email or web address] Information not available 10/23/2023 Do You Have A Medical Power Of Primer Boxer? No [email or web address] Information not available 10/23/2023 What Was The Date Of Your Most Recent Tobacco Screening? 10/23/2023 [email or web address] Information not available 10/23/2023 How Many Children Do You Have? 0 [email or web address] Information not available 10/23/2023 What Is Your Current Pack Years? 30ormorepackyears [email or web address] Information not available 10/23/2023 Do You Have Any Pets? Yes Information not available 09/25/2023 Do You Use Protection During Sex? No [email or web address] Information not available 10/23/2023 What Is Your Relationship Status? Information not available 09/25/2023 Do You Use Your Seat Belt Or Car Seat Routinely? Yes Information not available 09/25/2023 Are You Sexually Active? Yes [email or web address] Information not available 10/23/2023 Do You Have Smoke And Carbon Monoxide Detectors In Your Home? Yes Information not available 09/25/2023 At What Age Did You Start Smoking Tobacco? 16 Information not available 09/25/2023 Are You Passively Exposed To Smoke? Yes Information not available 09/25/2023 Are There Any Smokers In Your House? Yes Information not available 09/25/2023 How Much Tobacco Do You Smoke? 1 PPD Information not available 09/25/2023 What Types Of Sporting Activities Do You Participate In? None [email or web address] Information not available 10/23/2023 Do You Feel Stressed (tense, Restless, Nervous, Or Anxious, Or Unable To Sleep At Night)? [id number] Information not available 09/25/2023 Do You Use Any Illicit Or Recreational Drugs? No [id number] Information not available 06/13/2022 Do You Use Sunscreen Routinely? No Information not available 09/25/2023 Has Tobacco Cessation Counseling Been Provided? Yes Not Interested In Stopping [email or web address] Information not available 10/23/2023 On What Date Was Tobacco Cessation Counseling Provided? 10/23/2023 [email or web address] Information not available 10/23/2023 How Many Years Have You Smoked Tobacco? 45 [email or web address] Information not available 10/23/2023 Have You Recently Traveled Abroad? No [id number] Information not available 06/13/2022 Do You Have Any Dietary Restrictions? No Information not available 09/25/2023 Do You Or Have You Ever Used Any Other Forms Of Tobacco Or Nicotine? No [id number] [id number] Information not available 06/13/2022 Sex: Female Functional Status Question Answer Note LastModified by Organization D etails LastModified Time What is your exercise level? None Information not available 09/25/2023 Mental Status None recorded. Family History Relationship Description Onset Age of this Age Resolved Age Notes LastModified by Organization Details LastModified Time Mother Essential hypertension Not available 09/25/2023 14:06:55 Mother Diabetes mellitus Not available 14:07:21 Mother Disorder of thyroid gland Not available 14:07:37 Father Essential hypertension Not available 09/25/2023 14:06:55 Brother Essential hypertension Not available 09/25/2023 14:06:55 Brother Diabetes mellitus Not available 14:07:21 Sister Essential hypertension Not available 09/25/2023 14:06:55 Sister Essential hypertension Not available 09/25/2023 14:06:55 Medical History Condition Response USE OF BLOOD THINNERS Y HIGH CHOLESTEROL / HYPERLIPIDEMIA Y BACK / NECK PROBLEMS Y SEIZURES/EPILEPSY Y KIDNEY DISEASE Y Gynecological HistoryNo gynecological history recorded. Obstetrics History GPAL:G 0 P 0 0 0 0 Past Encounters Encounter ID Performer Location Encounter Start Date Encounter Closed Date Diagnosis/Indication Diagnosis SNOMED-CT Code Diagnosis ICD10 Code Diagnosis Note [id number] [facility] Podiatry Eliazar Nelson [address] [place] [address] 11/02/2021 00:00:00 11/03/2021 10:49:32 [id number] Darnell Humphrey MD [facility] Internal Med [address] [facility] [place] [address] 09/25/2023 14:01:19 09/25/2023 15:00:01 Adult health examination 064800542 Z00.00 Colonoscop y- [facility] per ptMammogra m- NEVERDEXA- FLU- 3Pneumo vax- Has hadPrevnar 13-COVID- Has had 3 vaccines Essential hypertension 18569571 I10 UNDER CONTROL Hyperlipidemia 41919463 E78.5 labs Seizure disorder 8544589 02 G40.909 under control Osteoarthritis 774185710 M19.90 otc tylenol Overactive urinary bladder 899885791 N32.81 try meds, myrbetriq samples Kidney disease 50096678 N08 seeing nephro Hearing loss 32436457 H9 1.90 to get hearing eval Edema of l ower extremity 129204240 R60.0 on meds Smoker 76280905 F17.200 advised to quit Screening mammography 24 984870 Z12.31 Postmenopausal state 764 18777 Z78.0 Impacted c erumen in right ear 1955986558 371745 H61.21 needs cleaning Skin lesion 19893927 L98 .9 [id number] Darnell Humphrey MD [facility] Internal Med [address] [place] [address] 10/23/2023 15:41:53 10/23/2023 16:38:04 Adult health examination 346036938 Z00.00 Colonoscop y- 2020- [facility] per ptMammogra m- NEVERDEXA- FLU- 3Pneumo vax- Has hadPrevnar 13-COVID- Has had 3 vaccinesBo ne Density 2022 at hospital Impacted c erumen in right ear 9664264624 956691 H61.21 needs cleaning done with water, all the wax flushed out, TM and ear canals are clean [id number] Darnell Humphrey MD [facility] Internal Med [address] [place] [address] 04/22/2024 15:58:25 04/22/2024 16:47:12 Abnormal weight 72732067 R63.4 Smoker 99452146 F17.200 advised to quit, smokes 1ppd x 45 yrs Cigarette smoker 9476059 7 F17.210 Screening mammography 24 147815 Z12.31 Screening for malignant neoplasm of colon 645833355 Z12.11 Gynecologi c examination 07218899 Z01.419 Health Concerns Section Related Observation LastModified by Organization Detai ls LastModified Time None Recorded Concern Status LastModified by Organization Details LastModified Time None Recorded Advance Directives Directive N: Payers Encounter Date Sequence Insurance Name Policy Number Policy Wade Covered Member ID Wade Member ID Guarantor Name 09/25/2023 1 [place] Juan Nelson [id number] Juan Nelson 09/25/2023 2 [employer] (MEDICARE SUPPLEMENT) Juan Nelson [id number] Juan Nelson 10/23/2023 1 [place] Nelson [id number] Juan Nelson 10/23/2023 2 [employer] (MEDICARE SUPPLEMENT) Juan Nelson [id number] Juan Nelson 04/22/2024 1 [place] Nelson [id number] Juan Nelson Notes Date Note Type Note Provider Name and Address Organization Details Recorded Time 09/25/2023 text/html Pt is a 63 y/o h ere today to establish careWas seeing Dr. Rick HEARING LOSS, NEEDS EVAL Would like to see a Derm for some concerned spots on her face, getting bigger, Takes Advair for SOB, only uses as needed, NOT CLEAR why she is taking, smoker Hearing loss- Needs a referral for hearing test Carotid stenosis- has 70% stenosis the right, going to see CV surgeon Hypertension- controlled with medsMeds- Amlodipine 5mg daily, Lisinopril 10mg daily Hyperlipidemia- on medsMeds- Atorvastatin 40mg daily Edema- Has bilateral edema sees nephrology and is on diureticMeds- Chlorthalidone 25mg daily Kidney disease- Sees Dr. Shankar- Jardiance 10mg daily Seizures- On meds, Has not had in in over 25yrs, seeing Dr keli Clemons- Divalproex 250mg 5 tabs at HS Overactive bladder- has never taken meds, gets incontinence some times. Anemia- on Feso4 Osteoarthritis- tylenol Smoker- Smokes 1 pk/day, over 45 yrs, Tethered spinal cord Cardiology- Dr. Barraganphrology- Dr. RedNeurology- Dr. Keli Humphrey MD [address], [place], [address], [facility] 09/25/2023 14:53:27 10/23/2023 text/html Pt is here today for a 1 month follow up to get her ears cleaned, using debrox.Her b/p today is 96/60. Pt states that she feel OK. other than being dizzy. Has fallen due to unstable gait. Saw vascular surgeon, had US and doppler wasn't as bad as they thought and no need for surgery Darnell Humphrey MD [address], [place], [address], [facility] 10/23/2023 17:27:19 04/22/2024 text/html pt is here bc of the neurologist requested for her to do blood work done to test for cancer to find out why she is losing so much weight. pt has lost 10 lbs last 6 months.she has poor appetite pt is not fasting (MEDICARE) Darnell Humphrey MD [address], [place], [address], [facility] 04/22/2024 16:38:11 OBGyn Episode No OBEpisode recorded.
--- OUTSIDE RECORDS SUMMARY | 2024-06-06 17:33 | XMS_ITS | Clinical Summary ---
Author Organization [facility] Address [address] [place] [address] Care Team Providers Care Medical Csr Name Role Phone Unavailable Primary Care Provider Unavailabl e Allergies Active Allergy Reactions Criticality Noted Date Comments Codeine 02/03/2020 Hydrocodone Nausea And Vomiting Low 06/26/2016 Nsaids 02/03/2020 Medications * This document contains information received from the source organization and may not represent a complete record from that organization. amLODIPine (NORVASC) 5 MG tablet Take by mouth 1 (one) time each day 01/14/20 20 Active divalproex (DEPAKOTE) 250 MG EC tablet Take 1,250 mg by mouth at bed time 06/27/19 17 Active clopidogrel (PLAVIX) 75 MG tablet Take 75 mg by mouth 1 (one) time each day Active fluticasone-sa lmeterol (ADVAIR DISKUS) 250-50 MCG/DOSE diskus inhaler Inhale 2 puffs 1 (one) time each day Rinse mouth with water after use to reduce aftertaste and incidence of candidiasis. Do not swallow. Active ferrous sulfate 325 (65 Fe) MG tablet Take 325 mg by mouth every other day Active aspirin (ST YANETH) 81 MG EC tablet Take 81 mg by mouth 1 (one) time each day Active atorvastatin (LIPITOR) 40 MG tablet TAKE 1 TABLET(40 MG) BY MOUTH 1 TIME EACH DAY 90 tablet 3 03/06/20 23 Active furosemide (LASIX) 20 MG tablet Take 20 mg by mouth 1 (one) time each day Active Empagliflozin (Jardiance) 10 MG tablet Take 10 mg by mouth 1 (one) time each day in the morning Active chlorthalidone 25 MG tablet TAKE 1 TABLET(25 MG) BY MOUTH 1 TIME EACH DAY 90 tablet 04/10/20 24 Active lisinopril 10 MG tablet TAKE 1 TABLET BY MOUTH 1 TIME EACH DAY 90 tablet 05/18/19 25 Active lisinopril 10 MG tablet TAKE 1 TABLET BY MOUTH 1 TIME EACH DAY 90 tablet 02/14/20 24 025 Discontinued Active Problems Problem Noted Date Diagnosed Date Smoker 08/21/2022 Stage 3b chronic kidney disease 05/30/2021 Chronic obstructive pulmonary disease 05/30/2021 Seizure disorder 05/30/2021 Coronary arteriosclerosis 05/30/2021 Degeneration of intervertebral disc 05/30/2021 Hearing loss 05/30/2021 Gastroesophageal reflux disease 05/26/2021 Hyperlipidemia 05/26/2021 Essential (primary) hypertension 02/03/2020 Gastritis 02/03/2020 Shortness of breath 02/03/2020 Diastolic dysfunction 02/03/2020 Encounters Date Type Department Care Team Description 05/17/2024 Refill [facility], [facility] [address] [facility] [address] [place] [address] Nishant Gupta MD 05/12/2024 10:30 AM CENTRIFUGAL OPERATOR Office [email or web address] [address] [phone] Nishant Gupta MD Stage 3b chronic kidney disease (HCC) (Primary Dx); Essential (primary) hypertension; Coronary arteriosclerosis, not otherwise specified; Chronic bronchitis, not otherwise specified (HCC); Seizure disorder, not otherwise specified (HCC); Diastolic dysfunction; Mixed hyperlipidemia; Smoker; Hearing loss <Bilateral> 05/12/2024 Documentation Only [facility], [address] [address] Nishant Gupta MD 05/12/2024 Documentation Only [facility], [address] [address] Nishant Gupta MD 04/10/2024 Refill [facility] [employer] [address] [phone] Nishant Gupta MD from Last 3 Months Family History Medical History Relation Comments Heart disease Father Diabetes Mother Hypertension Mother Thyroid disease Mother Relation Status Comments Father Mother Social History Tobacco Use Types Packs/Day Years Used Date Smoking Tobacco: Every Day Cigarettes Smokeless Tobacco: Never Tobacco Cessation:Ready to Q uit: Not Asked; Counseling Given: Not Answered Alcohol Use Standard Drinks/Week Comments Never 0 (1 standard drink = 0.6 oz pur e alcohol) Comments Unknown Sex and Gender Information Value Date Recorded Sex Assigned at Not on file Legal Sex Female 12:02 PM EST Gender Identity Not on file Sexual Orientation Not on file Last Filed Vital Signs Vital Sign Reading Time Taken Comments Blood Pressure 120/80 05/12/2024 10:58 AM CENTRIFUGAL OPERATOR Pulse 68 05/12/2024 10:58 AM CENTRIFUGAL OPERATOR Temperature 36.1 C (97 F) 05/12/2024 10:58 AM CENTRIFUGAL OPERATOR Respiratory Rate 18 05/12/2024 10:58 AM CENTRIFUGAL OPERATOR Oxygen Saturation 97% 05/12/2024 10:58 AM CENTRIFUGAL OPERATOR Inhaled Oxygen Concentration - - Weight 52.2 kg (115 lb 1.6 oz) 05/12/2024 10:58 AM CENTRIFUGAL OPERATOR Height 157.5 cm (5' 2 ) 06/25/2023 10:19 AM CDT Body Mass Index 21.05 06/25/2023 10:19 AM CDT Plan of Treatment Upcoming Encounters Date Type Department Care Team (Late st Contact Info) Description 07/28/2024 10:30 AM CDT Office Visit [facility], [facility] [address] [facility] [address] [place] [phone] Nishant Gupta MD [address] [address] Health Maintenance Due Date Last Done Comments Breast Cancer Screening 1962 Pneumococcal Vaccine: Pediatrics (0 to 5 Years) and At-Risk Patients (6 to 64 Years) (1 of 2 - PCV) 01/03/1968 Colorectal Cancer Screening: Annual FOBT 2011 Colorectal Cancer Screening: Colonoscopy 2011 Colorectal Cancer Screening: Sigmoidoscopy 2011 Diabetes: Ophthalmology Exam 07/23/2022 Diabetes: Pedal Pulse Checked 07/23/2022 Diabetes: Sensory Foot Exam 07/23/2022 Diabetes: Visual Foot Exam 07/23/2022 Influenza Vaccine (#1) 2023 01/19/2015, 2012 Diabetes: Hemoglobin A1C 08/09/2024 025, 02/04/2024, 06/24/2023, Additional history exists Hepatitis B Vaccine Aged Out No longe r eligible based on patient's age to complete this topic Procedures Procedure Name Priority Date/Time Associated Diagnosis Comments EXT RESULT ENTRY Routine 05/11/2024 from Last 3 Months Results * (ABNORMAL) EXT RESULT ENTRY (05/11/2024) WBC 4.7 3.3 - 10.0 10*3/ML Red Blood Cell Count 4.16 Hemoglobin 13.6 12.0 - 16.0 Hematocrit 40.7 36.0 - 46.0 Platelets 95(A) 150 - 399 10*3/UL MCV 97.8 82.0 - 108.0 Sodium 141 137 - 147 Potassium 4.2 3.4 - 5.5 Chloride 109.0(A) 99.0 - 108.0 Carbon Dioxide 28 mmol/L Anion Gap 8.2 <=30 MMOL/L Glucose 77 60 - 200 BUN 20 4 - 21 mg/dL Creatinine 1.53(A) 0.50 - 1.10 mg/dL Total Protein 6.6 6.4 - 8.2 G/DL Albumin 3.9 3.5 - 5.0 g/dL Calcium 10.0 8.7 - 10.7 mg/dL Phosphorus, Serum 3.4 eGFR Non-Afr Cameroonian 34(L) PTH 134(H) PG/ML Vitamin D, 25-OH, Total 52.1 ng/mL Hemoglobin A1C 5.0 4.0 - 6.0 Triglycerides 177(H) Cholesterol, Total 253(H) HDL 46 mg/dL LDL-Calculated 172(H) 05/11/2024 us Historical Provider LAB BLOOD ORDERABLES Maureen eagle Result from Last 3 Months Insurance MEDICARE
--- OUTSIDE RECORDS SUMMARY | 2024-06-06 17:33 | XMS_ITS | Encounter Summary ---
Author Organization [facility] Address [address] [address] Phone Care Team Providers Care Dials Supervisor Name Role Phone Unavailable Primary Care Provider Unavailabl e Reason for Visit * Reason Comments Med Refill Encounter Details Date Type Department Care Team (Late st Contact Info) Description 04/30/2023 Refill [facility], [facility] [address] [address] Nishant Gupta MD [address] [address] Social History Tobacco Use Types Packs/Day Years Used Date Smoking Tobacco: Every Day Cigarettes Smokeless Tobacco: Never Alcohol Use Standard Drinks/Week Comments Never 0 (1 standard drink = 0.6 oz pur e alcohol) Comments Unknown Sex and Gender Information Value Date Recorded Sex Assigned at Not on file Legal Sex Female 12:02 PM EST Gender Identity Not on file Sexual Orientation Not on file documented as of this encounter Plan of Treatment Upcoming Encounters Date Type Department Care Team (Late st Contact Info) Description 07/28/2024 10:30 AM CDT [facility] [address] [facility] [address] [place] [address] Nishant Gupta MD [address] [facility] [address] [place] [address] documented as of this encounter Visit Diagnoses Not on filedocumented in this encounter
--- OUTSIDE RECORDS SUMMARY | 2024-06-06 17:34 | XMS_ITS | Clinical Summary ---
Author Organization [facility] Address [address] [place] [address] Care Team Providers Care Bronze Plater Name Role Phone Unavailable Primary Care Provider Unavailabl e Social History Tobacco Use Types Packs/Day Years Used Date Smoking Tobacco: Never Assessed Comments Unknown Sex and Gender Information Value Date Recorded Sex Assigned at Not on file Legal Sex Female 1:58 PM CDT Gender Identity Not on file Sexual Orientation Not on file Plan of Treatment Health Maintenance Due Date Last Done Comments Cervical Cancer Screening Pa p Smear (Age 30 to 64) Every 3 Years 1962 Colorectal Cancer Screening Colonoscopy (10 Years) 1962 Annual Physical 1965 Hepatitis C 01/03/1980 DTaP, Tdap and Td Vaccines ( 1 - Tdap) 1981 Cervical Cancer Screening Pa p with HPV Testing (Age 30 to 64) Every 5 Years 01/03/1992 Cervical Cancer Screening with HPV 01/03/1992 Mammogram Screening 2002 Zoster Vaccines (1 of 2) 01/03/2012 COVID-19 Vaccine (2023-2 5 season) 2023 Influenza Adult (#1) 2024 RSV Immunization or 60+ Years (1 - 1-dose 75+ series) 2037 Meningococcal B Vaccine Aged Out No l onger eligible based on patient's age to complete this topic Meningococcal Vaccine Aged Out No osito zachary eligible based on patient's age to complete this topic Pneumococcal Vaccine: Pediat rics (0 to 5 Years) and At-Risk Patients (6 to 64 Years) Aged Out No longer eligible b ased on patient's age to complete this topic RSV Immunizations Under 20 Months Aged Out No longer eligible based on patient's age to complete this topic
[2024-06-06 17:55] LABS: Influenza A QL RT-PCR Negative (Negative); Influenza B QL RT-PCR Negative (Negative); RSV RNA, RT-PCR Negative (Negative); SARS-CoV-2 RNA PCR Negative (Negative)
[2024-06-06 18:57] LABS: Add Urine Microscopic? NO; Appearance Urine Clear (Clear); Bilirubin Urine Negative (Negative); Blood Urine Negative (Negative); Color Urine Yellow (Yellow); Glucose Urine UA 2+ mg/dL (Negative); Ketones Urine Negative (Negative); Leukocyte Esterase Ur Negative LEU/UL (Negative); Nitrate Urine Negative (Negative); Protein Urine Negative (Negative); Specific Grav Ur 1.009 (1.001-1.035); pH Urine 6.5 (5.0-9.0)
[2024-06-06 20:17] LABS: Reflex Lactic Acid Yes or No Add Lactic
== END 2024-06-06 19:54 | disposition home or self-care (01) ==
PROVIDERS: Emergency Provider Emergency Medicine; PCP Internal Medicine
DX: R11.2 Nausea with vomiting, unspecified (principal); R19.7 Diarrhea, unspecified; Z20.822 Contact with and (suspected) exposure to COVID-19
CPT/HCPCS: 36415; 80053; 81003; 83605; 85025; 87637; 96360; 99283; J7030